=== PATIENT | male | born 1985 | race Caucasian/White ===

== ENCOUNTER 2023-09-28 14:51 | Emergency (ER) | payer OTHER ==
[~2023-09-28] VITALS: Ht 165.1 cm; Wt 80.7 kg
[2023-09-28 15:36] VITALS: BP 120/68; PULSE 85; RESP 18; TEMP 98.1; O2SAT 99
[2023-09-28] MEDS: ALUMINUM HYD/MAG/SIMETHICONE 30 ML UDC PO ONE (16:47)
[2023-09-28] MEDS: FAMOTIDINE 20 MG TAB PO ONE (16:47)
[2023-09-28] MEDS ORDERED: FAMO-92 PO (18:09)
[2023-09-28] MEDS ORDERED: CALC-870 PO (18:09)
[2023-09-28 18:35] VITALS: BP 120/68; PULSE 85; RESP 18; TEMP 98.1; O2SAT 99
== END 2023-09-28 18:34 | disposition home or self-care (01) ==
LOC: MED 14:51
DX: K29.70 Gastritis, unspecified, without bleeding (principal); Z79.899 Other long term (current) drug therapy
CPT/HCPCS: 93005; 99283